=== PATIENT | female | born 1965 | race Caucasian/White ===

== ENCOUNTER 2018-11-04 09:45 | Emergency (ER) | payer OTHER ==
[2018-11-04 10:24] VITALS: BP 160/96
--- NOTE | 2018-11-04 11:07 | ED ---
GI/ HPI - HPI Summary HPI Summary: Patient presents with UTI symptoms over the past 4 days. She reports urinary frequency followed by flank discomfort and strong urine smell the past 2 days. She also reports feeling a little bit wiped out today/mild chills. Better w/ AZO which she took today. Denies fever, nausea, vomiting, diarrhea, zaida abdominal pain. She has a history of UTI's - many in her 20's but only a couple in the past 2 years. She denies known history of pyelonephritis or urinary tract stones. She reports leading up to these events, she was constipated and probably not drinking enough water. She is also sexually active - voids after intercourse and wipes front to back. She denies any vaginal symptoms such as irritation, itching, discharge. - History of Current Complaint Chief Complaint: UCGU Time Seen by Provider: 11/04/18 10:49 Stated Complaint: LOWER BACK PAIN Hx Obtained From: Patient Hx Last Menstrual Period: 10/23/18 Pain Intensity: 3 - Allergy/Home Medications Allergies/Adverse Reactions: Allergies Allergy/AdvReac Type Severity Reaction Status Date / Time No Known Allergies Allergy Verified 11/04/18 10:24 Home Medications: Home Medications buPROPion SR TAB* [Wellbutrin SR TAB*] 100 mg PO BID 11/04/18 [History Confirmed 11/04/18] PMH/Surg Hx/FS Hx/Imm Hx Previously Healthy: Yes Endocrine/Hematology History: Denies: Hx Diabetes Cardiovascular History: Reports: Hx Hypertension - NO MEDS AT THIS TIME Denies: Hx Pacemaker/ICD History: Reports: Other Problems/Disorders - UTI's Denies: Hx Kidney Infection, Hx Kidney Stones, Hx Renal Disease Sensory History: Denies: Hx Hearing Aid Psychiatric History: Denies: Hx Panic Disorder - Cancer History Hx Chemotherapy: No Hx Radiation Therapy: No - Surgical History Surgery Procedure, Year, and Place: C SECTION 11/2004 Infectious Disease History: No Infectious Disease History: Denies: Traveled Outside the [place] in Last 30 Days - Social History Occupation: Employed Full-time Lives: With Family Alcohol Use: None Hx Substance Use: No Substance Use Type: Reports: None Hx Tobacco Use: No Smoking Status (MU): Never Smoked Tobacco Review of Systems Positive: Chills, Fatigue Eyes: Negative ENT: Negative Cardiovascular: Negative Respiratory: Negative Gastrointestinal: Negative Positive: see HPI Musculoskeletal: Negative Skin: Negative Neurological: Negative Psychological: Normal All Other Systems Reviewed And Are Negative: Yes Physical Exam Triage Information Reviewed: Yes Vital Signs On Initial Exam: Initial Vitals Temp Pulse Resp BP Pulse Ox 98.8 F 60 20 160/96 98 11/04/18 10:21 11/04/18 10:21 11/04/18 10:21 11/04/18 10:21 11/04/18 10:21 Vital Signs Reviewed: Yes Appearance: Positive: Well-Appearing, No Pain Distress, Obese Skin: Positive: Warm, Skin Color Reflects Adequate Perfusion, Dry Head/Face: Positive: Normal Head/Face Inspection Eyes: Positive: EOMI, Conjunctiva Clear - anicteric sclera ENT: Positive: Hearing grossly normal, Pharynx normal - mucosa moist Respiratory/Lung Sounds: Positive: Breath Sounds Present. Negative: Rales, Rhonchi, Wheezes Cardiovascular: Positive: Normal, RRR Abdomen Description: Positive: Nontender, No Organomegaly, Soft. Negative: CVA Tenderness (R), CVA Tenderness (L), Distended, Guarding Bowel Sounds: Positive: Present Pelvic Exam: Positive: Other - deferred Musculoskeletal: Positive: Normal, Strength/ROM Intact Neurological: Positive: Normal, Sensory/Motor Intact, Alert, Oriented to Person Place, Time, CN Intact II-III Psychiatric: Positive: Normal Diagnostics - Vital Signs Vital Signs Temp Pulse Resp BP Pulse Ox 11/04/18 10:21 98.8 F 60 20 160/96 98 - Laboratory Lab Statement: Any lab studies that have been ordered have been reviewed, and results considered in the medical decision making process. GIGU Course/Dx - Course Course Of Treatment: Clincally suspect UTI however discussed possibility of pyelonephritis and urinary tract stones. She is aware of tx plan, when to f/u w / PCP and when to go to ED. COuld not perform U/A d/t AZO but will send urine for cx - Diagnoses Provider Diagnoses: UTI (urinary tract infection) Discharge - Sign-Out/Discharge Documenting (check all that apply): Patient Departure All imaging exams completed and their final reports reviewed: No Studies - Discharge Plan Condition: Stable Disposition: HOME Prescriptions: Ciprofloxacin TAB* [Cipro 500 MG TAB*] 500 mg PO BID #14 tab Patient Education Materials: Urinary Tract Infection in Women (ED) Referrals: Tawana Palacios MD [Primary Care Provider] - Additional Instructions: Complete medication as directed Stay hydrated Follow-up with PCP if symptoms persist Go to ED if symptoms worsen - Billing Disposition and Condition Condition: STABLE Disposition: Home
== END 2018-11-04 11:16 | disposition home or self-care (01) ==
LOC: UCEAST 09:45
DX: N39.0 Urinary tract infection, site not specified (principal)
CPT/HCPCS: 87077; 87086; 87186; 99212; G0463